=== PATIENT | female | born 1955 | race Caucasian/White ===

== ENCOUNTER 2016-12-08 14:41 | Emergency (ER) | payer OTHER ==
[~2016-12-08] VITALS: Ht 165.1 cm; Wt 65.8 kg
[2016-12-08] MEDS ORDERED: DEXAMETHASONE SOD PHOS 4 MG/ML VIAL IV ONE (15:30)
[2016-12-08] MEDS ORDERED: IPRATRPIUM/ALBUTEROL 0.5/2.5MG 3 ML NEBU. NEB ONE (15:30)
--- NOTE | 2016-12-08 15:30 | PHYS DOC ---
Past Medical History Past Medical History: COPD, Seizure, TIA, Other Additional Past Medical Histor: hep c Past Surgical History: Appendectomy, Hysterectomy Additional Past Surgical Histo: bilat breast bx Alcohol Use: Occasionally Drug Use: None Adult General Chief Complaint Chief Complaint: SHORTNESS OF BREATH HPI HPI Patient is a 61 year old F who presents with shortness of air for the past 3 weeks. Patient is a heavy smoker and for the past 3 weeks she's been having worsening shortness of breath with a productive cough. Patient states she becomes extremely short of breath when she gets up and walks. Patient states she 's been nauseous and vomiting up phlegm. Patient states she has had decreased by mouth intake secondary to the nausea from the phlegm. Patient denies any fevers. Patient denies any chest pain. Patient has no other complaints. Review of Systems Review of Systems GEN: Denies fevers, chills, sweats HEENT: Denies blurred vision, sore throat CV: Denies chest pain RESP: +SOA GI: + n/v NEURO: Denies confusion, dizziness MSK: Denies weakness, joint pain/swelling Current Medications Current Medications Current Medications Medications (Trade) Dose Ordered Sig/Sonam Start Time Stop Time Status Last Admin Dose Admin Albuterol/ Ipratropium (Duoneb) 3 ml 1X ONCE 12/08/16 15:30 12/08/16 15:41 DC 12/08/16 16:20 3 ML Dexamethasone Sodium Phosphate (Decadron) 10 mg 1X ONCE 12/08/16 15:30 12/08/16 15:41 DC 12/08/16 15:53 10 MG Allergies Allergies Allergies Coded Allergies Type Severity Reaction Last Updated Verified No Known Drug Allergies 12/08/16 No Physical Exam Physical Exam GEN.: No apparent distress. Alert and oriented. HEENT: Head is normocephalic, atraumatic NECK: Supple. LUNGS: Coarse breath sounds bilaterally at the bases, no respiratory distress , no tachypnea HEART: RRR, S1, S2 present. Peripheral pulses intact ABDOMEN: Soft, nontender. Positive bowel sounds. EXTREMITIES: Without any cyanosis. NEUROLOGIC: Normal speech, normal tone PSYCHIATRIC: Normal affect, normal mood. SKIN: No ulcerations Current Patient Data Vital Signs Vital Signs Date Time Temp Pulse Resp B/P (MAP) Pulse Ox O2 Delivery O2 Flow Rate FiO2 12/08/16 16:20 96 Room Air 12/08/16 15:55 80 18 120/69 (86) 12/08/16 14:55 98.3 98.3 Lab Values Laboratory Tests Test 12/08/16 15:13 12/08/16 15:35 12/08/16 16:05 Sodium Level 138 mmol/L (136-145) Potassium Level 3.3 mmol/L (3.5-5.1) L Chloride Level 100 mmol/L (98-107) Carbon Dioxide Level 26 mmol/L (21-32) Anion Gap 12 (6-14) Blood Urea Nitrogen 9 mg/dL (7-20) Creatinine 0.6 mg/dL (0.6-1.0) Estimated GFR (Cockcroft-Gault) 101.6 BUN/Creatinine Ratio 15 (6-20) Glucose Level 100 mg/dL (70-99) H Calcium Level 9.5 mg/dL (8.5-10.1) Total Bilirubin 0.5 mg/dL (0.2-1.0) Aspartate Amino Transferase (AST) 131 U/L (15-37) H Alanine Aminotransferase (ALT) 125 U/L (14-59) H Alkaline Phosphatase 122 U/L (46-116) H Troponin I Quantitative < 0.017 ng/mL (0.000-0.055) Total Protein 8.4 g/dL (6.4-8.2) H Albumin 3.4 g/dL (3.4-5.0) Albumin/Globulin Ratio 0.7 (1.0-1.7) L White Blood Count 8.0 x10^3/uL (4.0-11.0) Red Blood Count 4.60 x10^6/uL (3.50-5.40) Hemoglobin 16.2 g/dL (12.0-15.5) H Hematocrit 47.6 % (36.0-47.0) H Mean Corpuscular Volume 103 fL (79-100) H Mean Corpuscular Hemoglobin 35 pg (25-35) Mean Corpuscular Hemoglobin Concent 34 g/dL (31-37) Red Cell Distribution Width 13.5 % (11.5-14.5) Platelet Count 248 x10^3/uL (140-400) Neutrophils (%) (Auto) 57 % (31-73) Lymphocytes (%) (Auto) 31 % (24-48) Monocytes (%) (Auto) 9 % (0-9) Eosinophils (%) (Auto) 2 % (0-3) Basophils (%) (Auto) 1 % (0-3) Neutrophils # (Auto) 4.6 x10^3uL (1.8-7.7) Lymphocytes # (Auto) 2.5 x10^3/uL (1.0-4.8) Monocytes # (Auto) 0.7 x10^3/uL (0.0-1.1) Eosinophils # (Auto) 0.2 x10^3/uL (0.0-0.7) Basophils # (Auto) 0.0 x10^3/uL (0.0-0.2) Urine Collection Type Unknown Urine Color [place] Urine Clarity Cloudy Urine pH 6.0 Urine Specific [place] 1.020 Urine Protein Negative mg/dL (NEG-TRACE) Urine Glucose (UA) Negative mg/dL (NEG) Urine Ketones (Stick) Negative mg/dL (NEG) Urine Blood Negative (NEG) Urine Nitrite Positive (NEG) Urine Bilirubin Small (NEG) Urine Urobilinogen Dipstick 0.2 mg/dL (0.2 mg/dL) Urine Leukocyte Esterase Large (NEG) Urine RBC 0 /HPF (0-2) Urine WBC 11-20 /HPF (0-4) Urine Squamous Epithelial Cells Few /LPF Urine Bacteria Many /HPF (0-FEW) Laboratory Tests 12/08/16 15:35 Laboratory Tests 12/08/16 15:13 EKG EKG 1453: EKG shows normal sinus rhythm rate of 78 no STEMI[] Radiology/Procedures Radiology/Procedures Chest x-ray no acute findings, COPD[] Course & Med Decision Making Course & Med Decision Making Pertinent Labs and Imaging studies reviewed. (See chart for details) ED course: Patient was seen and examined emergency room, CBC, CMP, troponin, two-view chest ray, EKG, 10 monos Decadron, DuoNeb was ordered 1743: Patient was reevaluated in which she was feeling much better and was ready to go home. Updated patient on blood work and x-ray findings. Recommended patient stop smoking. Explained to the patient we'll treat her for COPD exacerbation along with a UTI MDM: After reviewing the chart, CC/HPI/PMH, physical exam, [lab results], [ radiological results], I do not believe the patient has significant rust or infection warranting further workup and/or admission at this time. Patient has a COPD situation that is gotten better after breathing treatments and steroids in the emergency room in stable to be discharged home. We'll place the patient on antibiotics for a possible atypical pneumonia. Recommended patient stop smoking. Recommend patient follow PCP in one to 2 days. Additional verbal discharge instructions were provided to the patient and that if symptoms get worse or any new symptoms arise that are worrisome to the patient she is to return to the emergency room immediately [] Dragon Disclaimer Dragon Disclaimer This electronic medical record was generated, in whole or in part, using a voice recognition dictation system. Departure Departure Impression: Primary Impression: COPD exacerbation Additional Impressions: URI (upper respiratory infection) UTI (urinary tract infection) Disposition: 01 HOME, SELF-CARE Condition: IMPROVED Referrals: UNKNOWN PCP NAME (PCP) Patient Instructions: Chronic Obstructive Pulmonary Disease Exacerbation, Easy- to-Read, Urinary Tract Infection, [id number] Additional Instructions: Please follow up with your family doctor next one to 2 days and return if symptoms increase Scripts Sulfamethoxazole/Trimethoprim (BACTRIM DS TABLET) 1 Each Tablet 1 TAB PO BID for 3 Days, #6 TAB Prov: BLAS HANCOCK DO 12/08/16 Prednisone (PREDNISONE) 50 Mg Tablet 1 TAB PO DAILY, #5 TAB Prov: BLAS HANCOCK DO 12/08/16 Doxycycline Hyclate (DOXYCYCLINE HYCLATE) 100 Mg Tablet 1 TAB PO BID, #14 TAB Prov: BLAS HANCOCK DO 12/08/16 Problem Qualifiers BLAS HANCOCK DO Dec 08, 2016 15:30
--- NOTE | 2016-12-08 15:44 | EKG ---
[facility] [address] [place] [address] Test Date: 2016-12-08 Test Time: 14:53:21 Pat Name: KALEE FLORES Department: Room: Gender: F Service Crew Supervisor: : 1955 Requested By: BLAS HANCOCK Order Number: [id number] Reading MD: Measurements Intervals [place] Rate: 78 P: 51 PA: 128 QRS: 48 QRSD: 82 T: 51 QT: 392 QTc: 451 Interpretive Statements SINUS RHYTHM LEFT ATRIAL ABNORMALITY INCOMPLETE RIGHT BUNDLE BRANCH BLOCK QRS(T) CONTOUR ABNORMALITY CONSIDER ANTEROLATERAL MYOCARDIAL DAMAGE CONSIDER INFERIOR MYOCARDIAL DAMAGE RI6.01 Unconfirmed report No previous ECG available for comparison
[2016-12-08 15:52] LABS: CALCIUM 9.5 mg/dL (8.5-10.1); CREATININE 0.6 mg/dL (0.6-1.0); GFR 101.6; POTASSIUM 3.3 mmol/L (3.5-5.1)
[2016-12-08 15:53] LABS: BASO % 1 % (0-3); EOS % 2 % (0-3); HEMATOCRIT 47.6 % (36.0-47.0); HEMOGLOBIN 16.2 g/dL (12.0-15.5); LYMPH # 2.5 x10^3/uL (1.0-4.8); LYMPH % 31 % (24-48); MEAN CORPUSCULAR HEMOGLOBIN 35 pg (25-35); MEAN CORPUSCULAR HGB CONC 34 g/dL (31-37); MEAN CORPUSCULAR VOLUME 103 fL (79-100); MONO % 9 % (0-9); NEUT % 57 % (31-73); PLATELET COUNT 248 x10^3/uL (140-400); RED CELL DISTRIBUTION WIDTH 13.5 % (11.5-14.5)
[2016-12-08 15:58] LABS: ALBUMIN 3.4 g/dL (3.4-5.0); ALBUMIN/GLOBULIN RATIO 0.7 (1.0-1.7); TOTAL BILIRUBIN 0.5 mg/dL (0.2-1.0); TOTAL PROTEIN 8.4 g/dL (6.4-8.2)
--- NOTE | 2016-12-08 16:11 | RAD ---
EXAM: Chest 2 views. HISTORY: Nausea, vomiting, cough. COMPARISON: None. FINDINGS: Frontal and lateral views of the chest are obtained. Hyperinflation suggests chronic obstructive pulmonary disease. There is mild atelectasis or scarring in the left costophrenic angle. There are no confluent infiltrates. There is no pneumothorax or pleural effusion. The heart is not enlarged. There are atherosclerotic calcifications of the aorta. IMPRESSION: 1. Correlate for chronic obstructive pulmonary disease. No confluent infiltrates.
[2016-12-08 16:25] LABS: BILIRUBIN,URINE SMALL (NEG); GLUCOSE,URINE NEGATIVE (NEG); NITRITE,URINE POSITIVE (NEG); PROTEIN,URINE NEGATIVE (NEG-TRACE); UROBILINOGEN,URINE 0.2 mg/dL (0.2 mg/dL)
[2016-12-08 16:46] LABS: RBC,URINE 0 /HPF (0-2)
[2016-12-08 16:47] LABS: BACTERIA,URINE MANY /HPF (0-FEW); SQUAMOUS EPITHELIAL CELL,UR FEW /LPF
[2016-12-08] MEDS ORDERED: SULF1TAB24 PO (17:48)
[2016-12-08] MEDS ORDERED: DOXY100T PO (17:48)
[2016-12-08] MEDS ORDERED: PRED50TA PO (17:48)
[2016-12-08 17:55] VITALS: BP 122/64
--- NOTE | 2016-12-11 17:41 | VNOTE ---
CALL BACK NOTE CALL BACK Microbiology 12/08/16 Urine Culture - Final, Complete 12/08/16 Urine Culture Result 1 (RAVINDER) - Final, Complete 12/08/16 Urine Culture Result 2 (RAVINDER) - Final, Complete 12/08/16 Antimicrobic Susceptibility - Final, Complete Patient was seen here for URI and UTI she was placed on Bactrim DS and doxy. Culture and sensitivity for the urine identifies resistance with both medications. Patient was notified and antibiotic will be changed to Levaquin 500 mg daily X7 days. Patient prescription was called to Gio at [facility] [place]. MARYCARMEN SANCHEZ FRUIT CULLER Dec 11, 2016 17:41
== END 2016-12-08 18:00 | disposition home or self-care (01) ==
LOC: ER 14:41
DX: J44.1 Chronic obstructive pulmonary disease with (acute) exacerbation (principal); J06.9 Acute upper respiratory infection, unspecified; N39.0 Urinary tract infection, site not specified; Z86.73 Personal history of transient ischemic attack (TIA), and cerebral infarction without residual deficits; Z90.49 Acquired absence of other specified parts of digestive tract; Z90.710 Acquired absence of both cervix and uterus
CPT/HCPCS: 36415; 71020; 80053; 81001; 84484; 85025; 87086; 87186; 93005; 94250; 94640; 96374; 99285; J1100; J7620